=== PATIENT | male | born 1945 | race Hispanic/Latino ===

== ENCOUNTER 2018-03-30 15:55 | Observation (INO) | payer OTHER ==
[2018-03-30] MEDS ORDERED: NA CHLORIDE 0.9% 1,000 ML ONE ×2 (16:25→17:57)
[2018-03-30 16:44] LABS: Absolute Lymphocytes (CBC) 1.1 K/uL (0.7-4.9); Absolute Monocytes 0.8 K/uL (0.1-1.3); Absolute Neutrophil 8.3 K/uL (1.8-8.0); Basophils % 0.5 % (0-1.3); Hematocrit 45.5 % (39.6-49.0); Lymphocytes % 10.9 % (15.3-44.8); MCH 28.2 pg (27.0-35.0); MCV 84.8 fL (80-100); MPV 9.4 fL (7.6-11.3); Monocytes % 8.1 % (3.3-12.3); RBC Red Blood Cell Count 5.37 M/uL (4.33-5.43)
--- NOTE | 2018-03-30 16:50 | RAD REPORT ---
EXAM DESCRIPTION: Isauro Single View03/30/2018 4:42 pm CLINICAL HISTORY: Chest pain COMPARISON: 2014 FINDINGS: The lungs appear clear of acute infiltrate. The heart is normal size IMPRESSION: No acute abnormalities displayed
--- NOTE | 2018-03-30 16:50 | RAD REPORT ---
EXAM DESCRIPTION: CT - Head Brain Wo Cont - 03/30/2018 4:38 pm CLINICAL HISTORY: Dizziness COMPARISON: None. TECHNIQUE: Computed axial tomography of the head was obtained. IV contrast was not requested. All CT scans are performed using dose optimization technique as appropriate and may include automated exposure control or mA/KV adjustment according to patient size. FINDINGS: An intracranial bleed is not seen . The ventricles are normal in caliber. No extra-axial fluid collection is noted. Arterial calcifications are noted. Fluid within the sinuses/ mastoids is not seen. IMPRESSION: No acute intracranial abnormality is seen. If patient's symptoms persist MRI of the bra in would be recommended.
[2018-03-30 16:52] LABS: Protime INR 1.02
[2018-03-30 17:00] LABS: Urine Blood NEGATIVE (NEG); Urine Glucose NEGATIVE (NEG); Urine Protein NEGATIVE (NEG); Urine Specific Gravity 1.015 (1.005-1.030)
[2018-03-30 17:11] LABS: ALT/SGPT 31 U/L (12-78); AST/SGOT 29 U/L (15-37); Albumin 4.2 g/dL (3.4-5.0); Alkaline Phosphatase 81 U/L (45-117); BUN Blood Urea Nitrogen 23 mg/dL (7-18); Bicarbonate 27 mmol/L (21-32); Bilirubin Direct < 0.1 mg/dL (0-0.2); Bilirubin Total 0.3 mg/dL (0.2-1.0); CKMB Creatine Kinase MB 5.6 ng/mL (0.3-3.6); Creatine Phosphokinase 733 U/L (39-308); Glucose Level 74 mg/dL (74-106); Magnesium 2.4 mg/dL (1.8-2.4); NT PRO-BNP 92 pg/mL (<125); Potassium 4.5 mmol/L (3.5-5.1); Protein, Total 7.8 g/dL (6.4-8.2); Sodium Level 141 mmol/L (136-145)
[2018-03-30] MEDS ORDERED: ASPIRIN 81 MG CHEWABLE TABLET ONE (17:36)
[2018-03-30] MEDS ORDERED: ENOXAPARIN 80 MG/0.8 ML SQ ONE (17:37)
[2018-03-30] MEDS ORDERED: METOPROLOL TAR 25 MG TAB ONE (17:37)
--- NOTE | 2018-03-30 17:40 | ER ---
Nurse's Notes [facility] Name: Theresa Perry Age: 73 yrs Sex: Male : 1945 Arrival Date: 03/30/2018 Time: 15:58 Bed 5 Private MD: Raffaele Sepulveda Diagnosis: Acute kidney injury Presentation: 03/30 16:11 Presenting complaint: Child states: they were outside cleaning at her brother's iw gravesite, her father got over heated and then got really dizzy after standing up, was dizzy for approx 5-10 minutes, symptoms have resolved now. Transition of care: patient was not received from another setting of care. Onset of symptoms was March 30, 2018. Risk Assessment: Do you want to hurt yourself or someone else? Patient reports no desire to harm self or others. Initial Sepsis Screen: Does the patient meet any 2 criteria? No. Patient's initial sepsis screen is negative. Does the patient have a suspected source of infection? No. Patient's initial sepsis screen is negative. Care prior to arrival: None. 16:11 Method Of Arrival: Ambulatory iw 16:11 Acuity: ALLAN 3 iw Historical: - Allergies: 16:17 No Known Allergies; iw - Home Meds: 20:03 aspirin 81 mg Oral chew 1 tab once daily [Active]; lisinopril 20 mg Oral tab 1 tab once lp1 daily [Active]; simvastatin 20 mg Oral tab 1 tab once daily [Active]; - PMHx: 16:15 High Cholesterol; Hypertension; KIDNEY ISSUES AND BORDERLINE DIABETES; iw - PSHx: 16:15 Cholecystectomy; iw - Immunization history:: Adult Immunizations up to date. - Ebola Screening: : Patient negative for fever greater than or equal to 101.5 degrees Fahrenheit, and additional compatible Ebola Virus Disease symptoms Patient denies exposure to infectious person Patient denies travel to an Ebola-affected area in the 21 days before illness onset No symptoms or risks identified at this time. - Social history:: Smoking status: Patient/guardian denies using tobacco. Screenin:30 Patient has been NPO before screening. The patient is alert, able to follow commands. jl7 The patient does not exhibit slurred or garbled speech The patient is not exhibiting difficulty speaking. The patient does not exhibit difficulty understanding words. The patient is able to swallow own secretions with no drooling or need for suction. Patient tolerated one teaspoon of water. No drooling, immediate coughing, gurgling, or clearing of the throat was noted. The patient tolerated 90mL of water. No drooling, immediate coughing, gurgling, or clearing of the throat was noted. The patient passed the bedside swallow screening. Oral medications may be given as ordered. Contact Physician for further diet orders. Provider notified of bedside swallow screening results: Alex Fernandez COMBINE DRIVER. 16:37 Abuse screen: Denies threats or abuse. Denies injuries from another. Nutritional jl7 screening: No deficits noted. Tuberculosis screening: No symptoms or risk factors identified. Fall Risk IV access (20 points). Total Garcia Fall Scale indicates No Risk (0-24 pts). Assessment: 16:30 General: Appears in no apparent distress. uncomfortable, Behavior is calm, cooperative, jl7 appropriate for age. Pain: Denies pain. Neuro: Level of Consciousness is awake, alert, obeys commands, Oriented to person, place, time, situation, Moves all extremities. Gait is steady, Speech is normal, Facial symmetry appears normal. Cardiovascular: Patient's skin is warm and dry. Respiratory: Airway is patent Respiratory effort is even, unlabored, Respiratory pattern is regular, symmetrical. GI: No signs and/or symptoms were reported involving the gastrointestinal system. : No signs and/or symptoms were reported regarding the genitourinary system. EENT: No signs and/or symptoms were reported regarding the EENT system. Derm: Skin is pink, warm \T\ dry. Musculoskeletal: No signs and/or symptoms reported regarding the musculoskeletal system. 17:26 Reassessment: Patient appears in no apparent distress at this time. No changes from jl7 previously documented assessment. Patient and/or family updated on plan of care and expected duration. Pain level reassessed. Patient is alert, oriented x 3, equal unlabored respirations, skin warm/dry/pink. 18:02 Reassessment: Dr. Sepulveda at bedside discussing plan of care. jl7 18:42 Reassessment: No changes from previously documented assessment. Patient and/or family jl7 updated on plan of care and expected duration. Pain level reassessed. Patient is alert, oriented x 3, equal unlabored respirations, skin warm/dry/pink. 19:15 Reassessment: Patient is alert, oriented x 3, equal unlabored respirations, skin lp1 warm/dry/pink. Patient aware of admission Patient denies pain at this time. Patient states feeling better. Vital Signs: 16:15 BP 128 / 85; Pulse 88; Resp 16 S; Temp 97.8(TE); Pulse Ox 99% on R/A; Pain 0/10; iw 16:46 BP 114 / 83 Supine; Pulse 82; Resp 16 S; Pulse Ox 100% on R/A; jl7 16:48 BP 131 / 78 Sitting; Pulse 86; Resp 16 S; Pulse Ox 100% on R/A; jl7 16:50 BP 119 / 73 Standing; Pulse 88; Resp 16 S; Pulse Ox 100% on R/A; jl7 17:25 BP 121 / 78; Pulse 78; Resp 16 S; Pulse Ox 100% on R/A; Weight 81.65 kg; Height 5 ft. 7 jl7 in. (170.18 cm); Pain 0/10; 18:42 BP 138 / 89; Pulse 77; Resp 16; Pulse Ox 97% ; jl7 19:15 BP 126 / 81; Pulse 69; Resp 20; Pulse Ox 98% on R/A; Pain 0/10; lp1 20:00 BP 135 / 81; Pulse 69; Resp 19; Pulse Ox 97% on R/A; lp1 17:25 Body Mass Index 28.19 (81.65 kg, 170.18 cm) jl7 ED Course: 15:58 Patient arrived in ED. mr 15:59 Raffaele Sepulveda MD is Private Physician. mr 16:06 [facility] pm1 16:06 Farooq Zhang MD is Attending Physician. pm1 16:07 Eloisa Newby RN is Primary Nurse. jl7 16:14 Triage completed. iw 16:15 Arm band placed on. iw 16:29 EKG done, by anesthesia tech. reviewed by Alex Fernandez NP. sm3 16:30 Initial lab(s) drawn, by nh, sent to lab. Urine collected: clean catch specimen, clear. jl7 Inserted saline lock: 20 gauge in right antecubital area, using aseptic technique. Blood collected. 16:[address] via wheelchair. kc3 16:37 CT completed. Patient tolerated procedure well. Patient moved to radiology. kc3 16:37 Patient has correct armband on for positive identification. Placed in gown. Bed in low jl7 position. Call light in reach. Side rails up X 1. laboratory monitor on. Pulse ox on. NIBP on. 16:38 CT Head Brain wo Cont In Process Unspecified. EDMS 16:43 XRAY Chest (1 view) In Process Unspecified. EDMS 17:38 Raffaele Sepulveda MD is Hospitalizing Provider. pm1 19:07 Report given to TEENA Rhodes. jl7 20:02 No provider procedures requiring assistance completed. Patient admitted, IV remains in lp1 place. Administered Medications: 16:30 Drug: NS 0.9% 1000 ml Route: IV; Rate: 1000 ml; Site: right antecubital; jl7 17:38 Follow up: IV Status: Completed infusion jl7 17:37 Drug: Aspirin Chewable Tablet 324 mg Route: PO; jl7 18:02 Follow up: Response: No adverse reaction jl7 17:37 Not Given (Physician Discretion): Lovenox 1 mg/kg Sub-Q once pm1 17:37 Not Given (Physician Discretion): Lopressor 25 mg PO once pm1 17:45 Drug: NS 0.9% 1000 ml Route: IV; Rate: 75 ml/hr; Site: right antecubital; jl7 20:23 Follow up: IV Status: Infusion continued upon admission lp1 Outcome: 17:39 Decision to Hospitalize by Provider. pm1 20:03 Condition: stable lp1 20:03 Instructed on the need for admit. 20:22 Admitted to Med/surg room 231, with chart, Report called to Kimberlee Fallon RN lp1 20:47 Patient left the ED. lp1 Signatures: Dispatcher [employer] EDND Hannah Leonard Irene, RN RN iw Meagan Johnston RN RN lp1 Alex Fernandez, MIKA COMBINE DRIVER pm1 Eloisa Newby RN RN jl7 Tessa Hill kc3 Kenna Evangelista 3 Corrections: (The following items were deleted from the chart) 16:17 16:15 BP 128 / 85; Pulse 88bpm; Resp 16bpm; Spontaneous; Pulse Ox 99% RA; iw iw
--- NOTE | 2018-03-30 17:40 | EDPHYS ---
Physician Documentation [facility] Name: Theresa Perry Age: 73 yrs Sex: Male : 1945 Arrival Date: 03/30/2018 Time: 15:58 Bed 5 Private MD: Raffaele Sepulveda ED Physician Farooq Zhang HPI: 03/30 16:22 This 73 yrs old Male presents to ER via Ambulatory with complaints of pm1 Dizziness. 16:22 The patient presents with lightheadedness. Onset: The symptoms/episode began/occurred pm1 this morning. Context: occurred outdoors, occurred while the patient was changing position from bent over to standing. Patient was working on the lawn. just prior to the episode the patient experienced no apparent symptoms, No chest pain, shortness of breath, nausea, or vomiting. Modifying factors: The symptoms are alleviated by sitting down, and eating and drinking lunch afterwards. Associated signs and symptoms: Pertinent negatives: abdominal pain, blurred vision, chest pain, diaphoresis, focal weakness, headache, nausea, numbness, shortness of breath, tingling, vomiting. Severity of symptoms: in the emergency department the symptoms have resolved Pain is currently a 0 / 10. Patient's baseline: Neuro: alert and fully oriented, Motor: no deficits, Ambulation: walks without assistance, Speech: normal. The patient has not experienced similar symptoms in the past. The patient has not recently seen a physician, the patient's primary care provider is Dr. Sepulveda. Patient went out with his daughter to work on some land. Patient was working on the lawn. they believe that he got overheated and dehydrated. Patient bent down to vegetable picker and object and when he stood back up he felt dizzy. Patient reports improvement after sitting down and drinking Dr Pepper and Tea at lunch. Patient without any current symptoms. No headache, chest pain, or shortness of breath. Historical: - Allergies: 16:17 No Known Allergies; iw - Home Meds: 20:03 aspirin 81 mg Oral chew 1 tab once daily [Active]; lisinopril 20 mg Oral tab 1 tab once lp1 daily [Active]; simvastatin 20 mg Oral tab 1 tab once daily [Active]; - PMHx: 16:15 High Cholesterol; Hypertension; KIDNEY ISSUES AND BORDERLINE DIABETES; iw - PSHx: 16:15 Cholecystectomy; iw - Immunization history:: Adult Immunizations up to date. - Ebola Screening: : Patient negative for fever greater than or equal to 101.5 degrees Fahrenheit, and additional compatible Ebola Virus Disease symptoms Patient denies exposure to infectious person Patient denies travel to an Ebola-affected area in the 21 days before illness onset No symptoms or risks identified at this time. - Social history:: Smoking status: Patient/guardian denies using tobacco. ROS: 16:22 Constitutional: Negative for fever, chills, and weight loss, Eyes: Negative for injury, pm1 pain, redness, and discharge, ENT: Negative for injury, pain, and discharge, Neck: Negative for injury, pain, and swelling, Cardiovascular: Negative for chest pain, palpitations, and edema, Respiratory: Negative for shortness of breath, cough, wheezing, and pleuritic chest pain, Abdomen/GI: Negative for abdominal pain, nausea, vomiting, diarrhea, and constipation, Back: Negative for injury and pain, : Negative for injury, bleeding, discharge, and swelling, MS/Extremity: Negative for injury and deformity, Skin: Negative for injury, rash, and discoloration. 16:22 Neuro: Positive for dizziness, Negative for altered mental status, headache, numbness, seizure activity, syncope, tingling, weakness. Exam: 16:22 Constitutional: This is a well developed, well nourished patient who is awake, alert, pm1 and in no acute distress. Head/Face: Normocephalic, atraumatic. Eyes: Pupils equal round and reactive to light, extra-ocular motions intact. Lids and lashes normal. Conjunctiva and sclera are non-icteric and not injected. Cornea within normal limits. Periorbital areas with no swelling, redness, or edema. ENT: Nares patent. No nasal discharge, no septal abnormalities noted. Tympanic membranes are normal and external auditory canals are clear. Oropharynx with no redness, swelling, or masses, exudates, or evidence of obstruction, uvula midline. Mucous membranes moist. Neck: Trachea midline, no thyromegaly or masses palpated, and no cervical lymphadenopathy. Supple, full range of motion without nuchal rigidity, or vertebral point tenderness. No Meningismus. Chest/axilla: Normal chest wall appearance and motion. Nontender with no deformity. No lesions are appreciated. Cardiovascular: Regular rate and rhythm with a normal S1 and S2. No gallops, murmurs, or rubs. Normal PMI, no JVD. No pulse deficits. Respiratory: Lungs have equal breath sounds bilaterally, clear to auscultation and percussion. No rales, rhonchi or wheezes noted. No increased work of breathing, no retractions or nasal flaring. Abdomen/GI: Soft, non-tender, with normal bowel sounds. No distension or tympany. No guarding or rebound. No evidence of tenderness throughout. Back: No spinal tenderness. No costovertebral tenderness. Full range of motion. Skin: Warm, dry with normal turgor. Normal color with no rashes, no lesions, and no evidence of cellulitis. MS/ Extremity: Pulses equal, no cyanosis. Neurovascular intact. Full, normal range of motion. 16:22 Neuro: Orientation: is normal, Cranial nerves: CN II- XII are normal as tested, Cerebellar function: normal finger to nose testing, Motor: is normal, moves all fours, Sensation: is normal, no obvious gross deficits, Gait: is steady, at a normal pace, without difficulty. Vital Signs: 16:15 BP 128 / 85; Pulse 88; Resp 16 S; Temp 97.8(TE); Pulse Ox 99% on R/A; Pain 0/10; iw 16:46 BP 114 / 83 Supine; Pulse 82; Resp 16 S; Pulse Ox 100% on R/A; jl7 16:48 BP 131 / 78 Sitting; Pulse 86; Resp 16 S; Pulse Ox 100% on R/A; jl7 16:50 BP 119 / 73 Standing; Pulse 88; Resp 16 S; Pulse Ox 100% on R/A; jl7 17:25 BP 121 / 78; Pulse 78; Resp 16 S; Pulse Ox 100% on R/A; Weight 81.65 kg; Height 5 ft. 7 jl7 in. (170.18 cm); Pain 0/10; 18:42 BP 138 / 89; Pulse 77; Resp 16; Pulse Ox 97% ; jl7 19:15 BP 126 / 81; Pulse 69; Resp 20; Pulse Ox 98% on R/A; Pain 0/10; lp1 20:00 BP 135 / 81; Pulse 69; Resp 19; Pulse Ox 97% on R/A; lp1 17:25 Body Mass Index 28.19 (81.65 kg, 170.18 cm) jl7 MDM: 16:08 Patient medically screened. pm1 16:29 Data reviewed: vital signs. Data interpreted: Pulse oximetry: on room air is 99 %. pm1 Interpretation: normal. 16:29 Differential diagnosis: CVA, generalized weakness, hypovolemia, idiopathic dizziness, pm1 near-syncope, syncope, TIA, vertigo, Dehydration, heat exposure. 17:35 Physician consultation: Raffaele Sepulveda MD was called at 17:35, was contacted at 17:35, pm1 regarding admission, patient's condition, and will see patient later today, Does not want lopressor or lovenox given. Admit the patient for Acute Kidney Injury. Give patient NS 75 mL/hr continuous. 17:53 Physician consultation: Raffaele Sepulveda MD in the emergency department to see patient at pm1 17:53. 18:08 Physician consultation: Raffaele Sepulveda MD CPK in AM. Increase fluids to 100 mL/hr from 75 pm1 mL/hr. 03/30 16:14 Order name: Basic Metabolic Panel; Complete Time: 17:13 pm1 03/30 16:14 Order name: CBC with Diff; Complete Time: 17:04 pm1 03/30 16:14 Order name: Ckmb; Complete Time: 17:13 pm1 03/30 16:14 Order name: CPK; Complete Time: 17:13 pm1 03/30 16:14 Order name: LFT's; Complete Time: 17:13 pm1 03/30 16:14 Order name: Magnesium; Complete Time: 17:13 pm1 03/30 16:14 Order name: NT PRO-BNP; Complete Time: 17:13 pm1 03/30 16:14 Order name: PT-INR; Complete Time: 17:04 pm1 03/30 16:14 Order name: Ptt, Activated; Complete Time: 17:04 pm1 03/30 16:14 Order name: Troponin (emerg Dept Use Only); Complete Time: 17:04 pm1 03/30 16:14 Order name: XRAY Chest (1 view); Complete Time: 17:04 pm1 03/30 16:14 Order name: CT Head Brain wo Cont; Complete Time: 17:04 pm1 03/30 16:58 Order name: Urine Dipstick--Ancillary (enter results); Complete Time: 17:04 ag 03/30 16:14 Order name: EKG; Complete Time: 16:15 pm1 03/30 16:14 Order name: Cardiac monitoring; Complete Time: 16:36 pm1 03/30 16:14 Order name: EKG - Nurse/Tech; Complete Time: 16:36 pm1 03/30 16:14 Order name: IV Saline Lock; Complete Time: 16:36 pm1 03/30 16:14 Order name: Labs collected and sent; Complete Time: 16:36 pm1 03/30 16:14 Order name: O2 Per Protocol; Complete Time: 16:36 pm1 03/30 16:14 Order name: O2 Sat Monitoring; Complete Time: 16:36 pm1 03/30 16:14 Order name: Urine Dipstick-Ancillary (obtain specimen); Complete Time: 16:36 pm1 03/30 16:14 Order name: Orthostatics; Complete Time: 16:53 pm1 Administered Medications: 16:30 Drug: NS 0.9% 1000 ml Route: IV; Rate: 1000 ml; Site: right antecubital; jl7 17:38 Follow up: IV Status: Completed infusion jl7 17:37 Drug: Aspirin Chewable Tablet 324 mg Route: PO; jl7 18:02 Follow up: Response: No adverse reaction jl7 17:37 Not Given (Physician Discretion): Lovenox 1 mg/kg Sub-Q once pm1 17:37 Not Given (Physician Discretion): Lopressor 25 mg PO once pm1 17:45 Drug: NS 0.9% 1000 ml Route: IV; Rate: 75 ml/hr; Site: right antecubital; jl7 20:23 Follow up: IV Status: Infusion continued upon admission lp1 Disposition: 03/30/18 17:39 Hospitalization ordered by Raffaele Sepulveda for Observation. Preliminary diagnosis is Acute kidney injury. - Bed requested for Telemetry/MedSurg (observation). - Status is Observation. lp1 - Condition is Stable. - Problem is new. - Symptoms have improved. UTI on Admission? No Addendum: 04/02/2018 07:20 Co-signature as Attending Physician, Farooq Zhang MD I agree with the assessment and k dr plan of care. Signatures: Dispatcher [employer] EDMS Farooq Zhang MD MD kdr Maria Esther Jimenez, RN RN iw Meagan Johnston, RN RN lp1 Alex Fernandez, CAN CLEANER CAN CLEANER pm1 Eloisa Newby RN RN jl7 Pradeep De Luna mw2 Corrections: (The following items were deleted from the chart) 03/30 20:17 17:39 Hospitalization Ordered by Raffaele Sepulveda MD for Observation. Preliminary diagnosis mw2 is Acute kidney injury. Bed requested for Telemetry/MedSurg (observation). Status is Observation. Condition is Stable. Problem is new. Symptoms have improved. UTI on Admission? No. pm1 20:47 20:17 03/30/2018 17:39 Hospitalization Ordered by Raffaele Sepulveda MD for Observation. lp1 Preliminary diagnosis is Acute kidney injury. Bed requested for Telemetry/MedSurg (observation). Status is Observation. Condition is Stable. Problem is new. Symptoms have improved. UTI on Admission? No. mw2
--- NOTE | 2018-03-30 18:21 | P.HP ---
Certification for Inpatient Patient admitted to: Observation With expected LOS: <2 Midnights Patient will require the following post-hospital care: None Practitioner: I am a practitioner with admitting privileges, knowledge of patient current condition, hospital course, and medical plan of care. Services: Services provided to patient in accordance with Admission requirements found in Title 42 Section 412.3 of the Code of Federal Regulations Patient History Date of Service: 03/30/18 Primary Care Provider: Derick Reason for admission: Acute renal failure due to rhabdomyalisis History of Present Illness: Patient is an office patient of [facility]. He has a history of htn, hyperlipidemia. He was struggling with grief due to the of his son. He went to the site of his to clean up around the cross. Spent approx 2 hours working in the sun. Had some tea. The patient started getting dizzy. As it did not resolve he came to the ER. He was found to have an elevation in his cpk and a creatine of 1.9. Unfortunately we do not have a baseline to compare to. The patient denies any chest pain or shortness of breath. Allergies No Known Drug Allergies Allergy (Unverified 03/05/15 23:27) Unknown No Known Allergies Allergy (Uncoded 09/14/17 01:45) Unknown Home medications list reviewed: Yes (lisinopril 20mg qday, simvastatin 20mg qday , asa 81mg qday) Review of Systems 10-point ROS is otherwise unremarkable General: Weakness, Malaise Physical Examination - Physical Exam General: Alert, In no apparent distress HEENT: Atraumatic, PERRLA, Mucous membr. moist/pink, EOMI, Sclerae nonicteric Neck: Supple, 2+ carotid pulse no bruit, No LAD, Without JVD or thyroid abnormality Respiratory: Clear to auscultation bilaterally, Normal air movement Cardiovascular: Regular rate/rhythm, Normal S1 S2 Gastrointestinal: Normal bowel sounds, No tenderness Musculoskeletal: No tenderness Integumentary: No rashes Neurological: Normal gait, Normal speech, Normal strength at 5/5 x4 extr, Normal tone, Normal affect Lymphatics: No axilla or inguinal lymphadenopathy - Studies Laboratory Data (last 24 hrs) 03/30/18 16:30: PT 12.0, INR 1.02, APTT 34.7 03/30/18 16:30: WBC 10.4, Hgb 15.1, Hct 45.5, Plt Count 206 03/30/18 16:30: Sodium 141, Potassium 4.5, BUN 23 H, Creatinine 1.90 H, Glucose 74, Magnesium 2.4, Total Bilirubin 0.3, AST 29, ALT 31, Alkaline Phosphatase 81 Assessment and Plan - Problems (Diagnosis) (1) Acute renal failure Current Visit: Yes Status: Acute Plan: will continue him on iv fluids. Monitor his cpk. He does not want a snyder. Will give him a bedside urinal as he will hopefully be peeing a lot. This is most likely a prerenal kidney failure. Qualifiers: Acute renal failure type: unspecified Qualified Code(s): N17.9 - Acute kidney failure, unspecified (2) Rhabdomyolysis Current Visit: Yes Status: Acute Plan: Will start with fluid hydration. Will feed him. Monitor his kidney function. Qualifiers: Rhabdomyolysis type: non-traumatic Qualified Code(s): M62.82 - Rhabdomyolysis (3) HTN (hypertension) Current Visit: Yes Status: Acute Plan: Normally takes lisinopril. He has not been in the office for nearly a year. will hold for now. If his blood pressure increases we can restart the lisinopril Qualifiers: Hypertension type: essential hypertension Qualified Code(s): I10 - Essential (primary) hypertension (4) Hyperlipidemia Current Visit: Yes Status: Acute Plan: Hold the simvastatin while he is in rhabdo. Will check a fasting lipid profile on the patient. Qualifiers: Hyperlipidemia type: pure hypercholesterolemia Qualified Code(s): E78.00 - Pure hypercholesterolemia, unspecified; E78.0 - Pure hypercholesterolemia Discharge Plan: Home Plan to discharge in: 24 Hours - Advance Directives Does patient have a Living Will: No Does patient have a Durable POA for Healthcare: No - Code Status/Comfort Care Code Status Assessed: No Code Status: Full Code Physician Review: Patient Assessed, Agree with Above Assessment and Plan Critical Care: No Time Spent Managing Pts Care (In Minutes): 40
[2018-03-30] MEDS ORDERED: NA CHLORIDE 0.9% 1,000 ML IV SCH (19:00)
--- NOTE | 2018-03-30 19:09 | EKG ---
Test Date: 2018-03-30 Test Time: 16:25:11 International Logistics Manager: ANGELA MEASUREMENT RESULTS: Intervals: Rate: 84 AL: 158 QRSD: 84 QT: 338 QTc: 399 Roberts: P: 23 AL: 158 QRS: -19 T: 9 INTERPRETIVE STATEMENTS: Normal sinus rhythm Normal ECG Compared to ECG 03/04/2015 19:29:26 Left ventricular hypertrophy no longer present Electronically Signed On 03-30-18 19:08:43 CDT by Leonides Montesinos
[2018-03-30] MEDS: NA CHLORIDE 0.9% 1,000 ML IV SCH (21:05)
[2018-03-30] MEDS ORDERED: ACETAMINOPHEN 500 MG TAB PO PRN (21:05)
[2018-03-31] MEDS: NA CHLORIDE 0.9% 1,000 ML IV SCH ×2 (02:58→07:05)
[2018-03-31 05:02] LABS: Absolute Lymphocytes (CBC) 1.4 K/uL (0.7-4.9); Absolute Monocytes 0.5 K/uL (0.1-1.3); Absolute Neutrophil 3.9 K/uL (1.8-8.0); Basophils % 0.9 % (0-1.3); Eosinophils % 4.6 % (0-4.4); Hematocrit 40.3 % (39.6-49.0); Lymphocytes % 23.2 % (15.3-44.8); MCH 28.6 pg (27.0-35.0); MCV 85.7 fL (80-100); MPV 9.2 fL (7.6-11.3); Monocytes % 8.6 % (3.3-12.3); RBC Red Blood Cell Count 4.71 M/uL (4.33-5.43)
[2018-03-31 05:26] LABS: Potassium 4.4 mmol/L (3.5-5.1)
[2018-03-31] MEDS ORDERED: PANTOPRAZOLE 40MG TABLET PO SCH (06:30)
[2018-03-31] MEDS ORDERED: PNEUMOCOCCAL VACCINE 0.5 ML IMVAC ONE (08:00)
[2018-03-31] MEDS ORDERED: ASPIRIN EC 81 MG TAB PO SCH (09:00)
--- NOTE | 2018-03-31 09:27 | P.DS ---
Admission Date: 03/30/18 Discharge Date: 03/31/18 Primary Care Provider: Derick Disposition: ROUTINE DISCHARGE Discharge Condition: GOOD Reason for Admission: Acute renal failure due to rhabdomyalisis - Problems (1) Acute renal failure Current Visit: Yes Status: Acute Qualifiers: Acute renal failure type: unspecified Qualified Code(s): N17.9 - Acute kidney failure, unspecified (2) Rhabdomyolysis Current Visit: Yes Status: Acute Qualifiers: Rhabdomyolysis type: non-traumatic Qualified Code(s): M62.82 - Rhabdomyolysis (3) HTN (hypertension) Current Visit: Yes Status: Acute Qualifiers: Hypertension type: essential hypertension Qualified Code(s): I10 - Essential (primary) hypertension (4) Hyperlipidemia Current Visit: Yes Status: Acute Qualifiers: Hyperlipidemia type: pure hypercholesterolemia Qualified Code(s): E78.00 - Pure hypercholesterolemia, unspecified; E78.0 - Pure hypercholesterolemia Brief History of Present Illness: Patient is an office patient of [employer]. He has a history of htn, hyperlipidemia. He was struggling with grief due to the of his son. He went to the site of his to clean up around the cross. Spent approx 2 hours working in the sun. Had some tea. The patient started getting dizzy. As it did not resolve he came to the ER. He was found to have an elevation in his cpk and a creatine of 1.9. Unfortunately we do not have a baseline to compare to. The patient denies any chest pain or shortness of breath. Hospital Course: Patient was admitted for iv fluids. His creatine has fallen from 1.9 to 1.3 He has improved his cpk to 500's. Will recheck his creatine in the afternoon. If ti continues to fall. The patient can safely be discharged. Will have him follow up in the office. Hold the lisinopril and the simvastatin till then. Vital Signs/Physical Exam: Temp Pulse Resp BP Pulse Ox 96.6 F L 76 18 116/58 L 96 03/31/18 08:00 03/31/18 08:00 03/31/18 08:00 03/31/18 08:00 03/31/18 08:00 General: Alert, In no apparent distress HEENT: Atraumatic, PERRLA, EOMI Neck: Supple, JVD not distended Respiratory: Clear to auscultation bilaterally, Normal air movement Cardiovascular: Regular rate/rhythm, Normal S1 S2 Gastrointestinal: Normal bowel sounds, No tenderness Musculoskeletal: No tenderness Integumentary: No rashes Neurological: Normal speech, Normal tone, Normal affect Lymphatics: No axilla or inguinal lymphadenopathy Laboratory Data at Discharge: WBC 6.2 K/uL (4.3-10.9) D 03/31/18 04:10 Hgb 13.4 g/dL (13.6-17.9) L 03/31/18 04:10 Hct 40.3 % (39.6-49.0) 03/31/18 04:10 Plt Count 147 K/uL (152-406) L D 03/31/18 04:10 PT 12.0 SECONDS (9.5-12.5) 03/30/18 16:30 INR 1.02 03/30/18 16:30 APTT 34.7 SECONDS (24.3-36.9) 03/30/18 16:30 Sodium 142 mmol/L (136-145) 03/31/18 04:10 Potassium 4.4 mmol/L (3.5-5.1) 03/31/18 04:10 BUN 20 mg/dL (7-18) H 03/31/18 04:10 Creatinine 1.30 mg/dL (0.55-1.3) 03/31/18 04:10 Glucose 94 mg/dL (74-106) 03/31/18 04:10 Magnesium 2.4 mg/dL (1.8-2.4) 03/30/18 16:30 Total Bilirubin 0.3 mg/dL (0.2-1.0) 03/30/18 16:30 AST 29 U/L (15-37) 03/30/18 16:30 ALT 31 U/L (12-78) 03/30/18 16:30 Alkaline Phosphatase 81 U/L (45-117) 03/30/18 16:30 Home Medications: Aspirin [Aspir-Low] 81 mg PO DAILY 03/30/18 Lisinopril [Prinivil*] 20 mg PO DAILY 03/30/18 Simvastatin 20 mg PO BEDTIME 03/30/18 Diet: Regular Activity: Ad haider Followup: Raffaele Sepulveda MD [Primary Care Provider] - 1-2 Weeks Physician Review: Patient Assessed, Agree with Above Assessment and Plan Time spent managing pt's care (in minutes): 30
[2018-03-31 13:24] LABS: Potassium 4.2 mmol/L (3.5-5.1)
[2018-03-31] MEDS ORDERED: ENOXAPARIN 40 MG/0.4 ML SQ SCH (17:00)
[2018-04-01] MEDS ORDERED: ASPIRIN EC 81 MG TAB PO SCH (09:00)
== END 2018-03-31 14:43 | disposition home or self-care (01) ==
LOC: ER 15:55 → ERHOLD 17:46 → 2ND 20:27
PROVIDERS: ADMIT Internal Medicine; ATTEND Internal Medicine
DX: N17.9 Acute kidney failure, unspecified (principal); M62.82 Rhabdomyolysis; I10 Essential (primary) hypertension; E78.00 Pure hypercholesterolemia, unspecified; Z79.82 Long term (current) use of aspirin; Z23 Encounter for immunization
CPT/HCPCS: 36415; 70450; 71045; 80048 ×3; 80076; 81003; 82550 ×2; 82553; 83735; 83880; 84484; 85025 ×2; 85610; 85730; 90670; 93005; 96360; 96361; 99285; G0009; G0378 ×2; J7030 ×3; J1650

== ENCOUNTER 2019-07-20 22:21 | Emergency (ER) | payer OTHER ==
--- NOTE | 2019-07-20 23:20 | ER ---
Nurse's Notes [facility] Name: Theresa Perry Age: 74 yrs Sex: Male : 1945 Arrival Date: 07/20/2019 Time: 22:24 Bed 15 Private MD: Diagnosis: Sprain of ankle Presentation: 07/20 22:26 Presenting complaint: adult child: "yesterday we were moving and he twisted his ankle jd3 and today he can barely walk on it.". Transition of care: patient was not received from another setting of care. Onset of symptoms was July 20, 2019. Risk Assessment: Do you want to hurt yourself or someone else? Patient reports no desire to harm self or others. Initial Sepsis Screen: Does the patient meet any 2 criteria? No. Patient's initial sepsis screen is negative. Does the patient have a suspected source of infection? No. Patient's initial sepsis screen is negative. Care prior to arrival: None. 22:26 Method Of Arrival: Wheelchair jd3 22:26 Acuity: ALLAN 4 jd3 Historical: - Allergies: 22:29 No Known Allergies; jd3 - Home Meds: 22:29 aspirin 81 mg Oral chew 1 tab once daily [Active]; lisinopril 20 mg Oral tab 1 tab once jd3 daily [Active]; simvastatin 20 mg Oral tab 1 tab once daily [Active]; - PMHx: 22:29 High Cholesterol; Hypertension; KIDNEY ISSUES AND BORDERLINE DIABETES; jd3 - PSHx: 22:29 Cholecystectomy; jd3 - Immunization history:: Adult Immunizations up to date. - Social history:: Smoking status: Patient/guardian denies using tobacco. - Ebola Screening: : Patient negative for fever greater than or equal to 101.5 degrees Fahrenheit, and additional compatible Ebola Virus Disease symptoms. Screenin:21 Abuse screen: Denies threats or abuse. Nutritional screening: No deficits noted. tr5 Tuberculosis screening: No symptoms or risk factors identified. Fall Risk None identified. Assessment: 23:21 General: Behavior is calm, cooperative, appropriate for age. Pain: Complains of pain in tr5 left foot. Neuro: Level of Consciousness is awake, alert, obeys commands, Oriented to person, place, time, Machine Setter are equal bilaterally. Cardiovascular: Heart tones present Capillary refill < 3 seconds Pulses are all present. Edema is absent. Respiratory: Airway is patent Respiratory effort is even, unlabored, Respiratory pattern is regular, symmetrical. GI: No signs and/or symptoms were reported involving the gastrointestinal system. : No signs and/or symptoms were reported regarding the genitourinary system. EENT: No signs and/or symptoms were reported regarding the EENT system. Derm: No signs and/or symptoms reported regarding the dermatologic system. Musculoskeletal: Reports pain in left foot. Vital Signs: 22:29 BP 139 / 84; Pulse 81; Resp 17 S; Temp 98.9(O); Pulse Ox 97% on R/A; Weight 72.57 kg j (R); Height 5 ft. 6 in. (167.64 cm) (R); Pain 10/10; 22:29 Body Mass Index 25.82 (72.57 kg, 167.64 cm) [facility] ED Course: 22:24 Patient arrived in ED. cf2 22:28 Triage completed. jd3 22:28 [facility]C [facility] kb 22:28 Milton Christensen MD is Attending Physician. kb 22:30 Arm band placed on. jd3 23:17 Marbin Robertson, RN is Primary Nurse. tr5 23:21 Bed in low position. Call light in reach. Side rails up X 1. tr5 23:35 Ankle Left 3 View XRAY In Process Unspecified. EDMS 07/21 00:14 No provider procedures requiring assistance completed. Patient did not have IV access tr5 during this emergency room visit. Administered Medications: No medications were administered Outcome: 07/20 23:18 Discharge ordered by . kb 07/21 00:12 Discharged to home via wheelchair. tr5 Condition: stable Discharge instructions given to patient, Instructed on discharge instructions, follow up and referral plans. Demonstrated understanding of instructions, follow-up care. 00:15 Patient left the ED. tr5 Signatures: Dispatcher [employer] EDVT Adina Barker FNP-C FNP-Ckb Davies, Jonathon, RN RN jd3 Marbin Robertson RN RN tr5 Hi Vasquez cf2
--- NOTE | 2019-07-20 23:21 | EDPHYS ---
Physician Documentation [facility] Name: Theresa Perry Age: 74 yrs Sex: Male : 1945 Arrival Date: 07/20/2019 Time: 22:24 Bed 15 Private MD: ED Physician Milton Christensen HPI: 07/20 23:18 This 74 yrs old Male presents to ER via Wheelchair with complaints of Ankle kb Injury. 23:18 The patient presents with pain, swelling, tenderness. The complaints affect the left kb ankle. Onset: The symptoms/episode began/occurred yesterday. Context: The problem was sustained at home, resulted from twisting ankle, The mechanism of injury is unknown. The patient can partially bear weight on the affected extremity. uses a walker. Associated signs and symptoms: Pertinent positives: swelling. Modifying factors: The symptoms are alleviated by nothing, the symptoms are aggravated by weight bearing. Severity of symptoms: At their worst the symptoms were moderate, in the emergency department the symptoms are unchanged. The patient has not experienced similar symptoms in the past. The patient has not recently seen a physician. twisted ankle while moving yesterday, walked on it ok yesterday. Pain when he woke up this morning and has been painful to walk on so he has been using a walker. Historical: - Allergies: 22:29 No Known Allergies; jd3 - Home Meds: 22:29 aspirin 81 mg Oral chew 1 tab once daily [Active]; lisinopril 20 mg Oral tab 1 tab once jd3 daily [Active]; simvastatin 20 mg Oral tab 1 tab once daily [Active]; - PMHx: 22:29 High Cholesterol; Hypertension; KIDNEY ISSUES AND BORDERLINE DIABETES; jd3 - PSHx: 22:29 Cholecystectomy; jd3 - Immunization history:: Adult Immunizations up to date. - Social history:: Smoking status: Patient/guardian denies using tobacco. - Ebola Screening: : Patient negative for fever greater than or equal to 101.5 degrees Fahrenheit, and additional compatible Ebola Virus Disease symptoms. ROS: 22:40 Constitutional: Negative for fever, chills, and weight loss, Neck: Negative for injury, kb pain, and swelling, Cardiovascular: Negative for chest pain, palpitations, and edema, Respiratory: Negative for shortness of breath, cough, wheezing, and pleuritic chest pain, Abdomen/GI: Negative for abdominal pain, nausea, vomiting, diarrhea, and constipation, Back: Negative for injury and pain, Skin: Negative for injury, rash, and discoloration, Neuro: Negative for headache, weakness, numbness, tingling, and seizure. 22:40 MS/extremity: Positive for injury or acute deformity, decreased range of motion, pain, swelling, tenderness. Exam: 22:45 Constitutional: This is a well developed, well nourished patient who is awake, alert, kb and in no acute distress. Head/Face: Normocephalic, atraumatic. ENT: Nares patent. No nasal discharge, no septal abnormalities noted. Tympanic membranes are normal and external auditory canals are clear. Oropharynx with no redness, swelling, or masses, exudates, or evidence of obstruction, uvula midline. Mucous membranes moist. Neck: Trachea midline, no thyromegaly or masses palpated, and no cervical lymphadenopathy. Supple, full range of motion without nuchal rigidity, or vertebral point tenderness. No Meningismus. Chest/axilla: Normal chest wall appearance and motion. Nontender with no deformity. No lesions are appreciated. Cardiovascular: Regular rate and rhythm with a normal S1 and S2. No gallops, murmurs, or rubs. Normal PMI, no JVD. No pulse deficits. Respiratory: Lungs have equal breath sounds bilaterally, clear to auscultation and percussion. No rales, rhonchi or wheezes noted. No increased work of breathing, no retractions or nasal flaring. Abdomen/GI: Soft, non-tender, with normal bowel sounds. No distension or tympany. No guarding or rebound. No evidence of tenderness throughout. Skin: Warm, dry with normal turgor. Normal color with no rashes, no lesions, and no evidence of cellulitis. Neuro: Awake and alert, GCS 15, oriented to person, place, time, and situation. Cranial nerves II-XII grossly intact. Motor strength 5/5 in all extremities. Sensory grossly intact. Cerebellar exam normal. Normal gait. 22:45 Musculoskeletal/extremity: Extremities: grossly normal except: noted in the anterior aspect of left ankle: decreased ROM, pain, swelling, tenderness, ROM: limited active range of motion due to pain, in the anterior aspect of left ankle, Circulation is intact in all extremities. Sensation intact. Weight bearing: can bear weight with assistance only, uses walker. Vital Signs: 22:29 BP 139 / 84; Pulse 81; Resp 17 S; Temp 98.9(O); Pulse Ox 97% on R/A; Weight 72.57 kg jd3 (R); Height 5 ft. 6 in. (167.64 cm) (R); Pain 10/10; 22:29 Body Mass Index 25.82 (72.57 kg, 167.64 cm) jd3 MDM: 22:32 Patient medically screened. kb 22:39 Data reviewed: vital signs, nurses notes. Data interpreted: Pulse oximetry: on room air kb is 97 %. Interpretation: normal. Counseling: I had a detailed discussion with the patient and/or guardian regarding: the historical points, exam findings, and any diagnostic results supporting the discharge/admit diagnosis, radiology results, the need for outpatient follow up, a orthopedic surgeon, to return to the emergency department if symptoms worsen or persist or if there are any questions or concerns that arise at home. 07/20 22:36 Order name: Ankle Left 3 View XRAY kb 07/20 23:18 Order name: Aircast Ankle Splint; Complete Time: 00:11 kb Administered Medications: No medications were administered Disposition: 07/20/19 23:18 Discharged to Home. Impression: Sprain of ankle. - Condition is Stable. - Discharge Instructions: Ankle Sprain, [id number]. - Work release form, Family Work Release, Medication Reconciliation Form, Thank You Letter, Antibiotic Education, Prescription Opioid Use form. - Follow up: Emergency Department; When: As needed; Reason: Worsening of condition. Follow up: Private Physician; When: 2 - 3 days; Reason: Recheck today's complaints, Continuance of care, Re-evaluation by your physician. Addendum: 07/22/2019 06:59 Co-signature as Attending Physician, Milton Christensen MD I agree with the assessment and c alex plan of care. Signatures: Dispatcher [employer] Adina Quintero, TRAINING SYSTEMS OFFICER-C TRAINING SYSTEMS OFFICER-CkMilton Perkins MD MD cha Davies, Jonathon, RN RN jd3 Marbin Robertson RN RN tr5 Corrections: (The following items were deleted from the chart) 07/20 22:45 22:40 MS/extremity: Positive for kb kb 11/24 00:15 07/20 23:18 07/20/2019 23:18 Discharged to Home. Impression: Sprain of ankle. Condition tr5 is Stable. Forms are Medication Reconciliation Form, Thank You Letter, Antibiotic Education, Prescription Opioid Use. Follow up: Emergency Department; When: As needed; Reason: Worsening of condition. Follow up: Private Physician; When: 2 - 3 days; Reason: Recheck today's complaints, Continuance of care, Re-evaluation by your physician. kb
[2019-07-21 00:32] VITALS: BP 139/84; TEMP 98.9; O2SAT 97
--- NOTE | 2019-07-21 08:44 | RAD REPORT ---
EXAM DESCRIPTION: RAD - Ankle Left 3 View - 07/20/2019 11:35 pm CLINICAL HISTORY: Ankle pain, twisting injury COMPARISON: Right ankle August 2017 FINDINGS: No fracture, dislocation or periosteal reaction. No joint effusion seen. No joint space na rrowing. Mild lateral soft tissue swelling is present. Patient has a moderately large plantar spur. A similar size spurs seen in the contralateral right calcaneus. Calcifications are present within or a djacent to the plantar tendon the calcaneus origin. Patient has a similar calcification pattern on th e right. IMPRESSION: Soft tissue swelling with no fracture. Plantar spur and tendon or peritendinous calcification pattern is similar to the contralateral right ankle.
== END 2019-07-21 00:15 | disposition home or self-care (01) ==
LOC: ER 22:21
DX: S93.402A Sprain of unspecified ligament of left ankle, initial encounter (principal); X50.1XXA Overexertion from prolonged static or awkward postures, initial encounter; Y93.9 Activity, unspecified; Y92.9 Unspecified place or not applicable; I10 Essential (primary) hypertension; E78.00 Pure hypercholesterolemia, unspecified; E11.9 Type 2 diabetes mellitus without complications; Z79.82 Long term (current) use of aspirin
CPT/HCPCS: 99283

== ENCOUNTER 2020-06-07 14:20 | Emergency (ER) | payer OTHER ==
--- OUTSIDE RECORDS SUMMARY | 2020-06-07 14:22 | XMS REPORT | Continuity of Care Document ---
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 [facility] Hyperlipid Hyperlipid Problem Active [facility] Hypertensi Hypertensi Problem Active C [facility] Acute left Acute left Diagnosis Active [facility] ankle pain ankle pain Mikayla kes - [facility] Diverticul Diverticul Problem Active C [facility] ar disease ar disease Mikayla kes - [facility] Adjustment Adjustment Problem Active [facility] disorder disorder [facility] - with with [facility] depressed depressed l mood mood [facility] Allergies, Adverse Reactions, Alerts This patient has no known allergies or adverse reactions. Medications Ordered Filled Start Stop Current Ordering Indication Dosage Frequency Signature Comments Components Source Medication Medication Date Date Medication? Clinician (SIG) Name Name Acetaminoph Acetaminoph Yes Kam (Schedule [facility] en-Codeine en-Codeine Gonzalez III Drug) Lacey - #3 #3 TK 2 TS PO [facility] Q 6 H PRN l P [facility] Simvastatin Simvastatin Yes Kam [address] [facility] Gonzalez ORALLY [facility] - ONCE DAILY [facility] IN EVENING l [facility] Diclofenac Diclofenac Yes Kam [address] [facility] Sodium Sodium Gonzalez with food [facility] - or milk [facility] l [facility] Lisinopril Lisinopril Yes Kam [address] [facility] Gonzalez ORALLY [facility] - ONCE DAILY [facility] Aspirin EC Aspirin EC Yes Kam TK [address] [facility] [address] Low Dose Low Dose Gonzalez ONCE D [facility] Lisinopril Lisinopril Yes Kam TAKE [address] [facility] Gonzalez TABLET BY [facility] - MOUTH [facility] EVERY DAY [facility] Meloxicam Meloxicam Yes Kam not [facility] Procedures This patient has no known procedures. Encounters Start End Encounter Admission Attending Care Care Encounter Source Date/Time Date/Time Type Type Clinicians Facility Department ID 2019-09-23 2019-09-23 [facility] [id number] [facility] [address] 08:30:00 08:30:00 t [facility] Results This patient has no known results.
--- NOTE | 2020-06-07 14:52 | EDPHYS ---
Physician Documentation [facility] Name: Theresa Perry Age: 75 yrs Sex: Male : 1945 Arrival Date: 06/07/2020 Time: 14:22 Bed 5 Private MD: ED Physician Andres Woods HPI: 06/07 14:48 This 75 yrs old Male presents to ER via Ambulatory with complaints of Nose ps1 Bleed. 14:48 Patient had left anterior nosebleed. Resolved STAFF EDUCATOR. Taking high dose aspirin for ps1 headaches. Onset was 3 days ago and intermittent. Additionally has HTN. Out of meds. Was taking lisinopril. Has not had fu with PCP. . Historical: - Allergies: 14:35 No Known Allergies; ll1 - PMHx: 14:35 High Cholesterol; Hypertension; KIDNEY ISSUES AND BORDERLINE DIABETES; ll1 - PSHx: 14:35 Cholecystectomy; Tonsillectomy; ll1 - Immunization history:: Flu vaccine is not up to date. - Social history:: Smoking status: Patient denies any tobacco usage or history of. ROS: 14:48 Constitutional: Negative for fever, chills, and weight loss, Eyes: Negative for injury, ps1 pain, redness, and discharge, Cardiovascular: Negative for chest pain, palpitations, and edema, Respiratory: Negative for shortness of breath, cough, wheezing, and pleuritic chest pain, Abdomen/GI: Negative for abdominal pain, nausea, vomiting, diarrhea, and constipation, MS/Extremity: Negative for injury and deformity, Skin: Negative for injury, rash, and discoloration. 14:48 Neuro: Positive for headache, not today. Exam: 14:48 Constitutional: This is a well developed, well nourished patient who is awake, alert, ps1 and in no acute distress. Head/Face: Normocephalic, atraumatic. Eyes: Pupils equal round and reactive to light, extra-ocular motions intact. Lids and lashes normal. Conjunctiva and sclera are non-icteric and not injected. Cardiovascular: Regular rate and rhythm. No gallops, murmurs, or rubs. Normal PMI, no JVD. No pulse deficits. Respiratory: Lungs have equal breath sounds bilaterally, clear to auscultation and percussion. No rales, rhonchi or wheezes noted. No increased work of breathing, no retractions or nasal flaring. Abdomen/GI: Soft, non-tender, with normal bowel sounds. No distension or tympany. No guarding or rebound. No evidence of tenderness throughout. Skin: Warm, dry with normal turgor. Normal color with no rashes, no lesions, and no evidence of cellulitis. Neuro: Awake and alert, GCS 15, oriented to person, place, time, and situation. Cranial nerves II-XII grossly intact. Sensory grossly intact. 14:48 ENT: External ear(s): are unremarkable, Nose: bleeding, is seen from the left nare, and is minimal, dried blood and clots. Vital Signs: 14:33 BP 160 / 99; Pulse 79; Resp 18; Temp 98.4; Pulse Ox 98% ; Pain 0/10; ll1 15:02 BP 146 / 95; Pulse 76; Resp 16; Temp 98.0; Pulse Ox 99% on R/A; ph MDM: 14:48 Differential diagnosis: spontaneous epistaxis, medication effect of aspirin. Data ps1 reviewed: vital signs, nurses notes, and as a result, I will discharge patient. Counseling: I had a detailed discussion with the patient and/or guardian regarding: the historical points, exam findings, and any diagnostic results supporting the discharge/admit diagnosis, the need for outpatient follow up, to return to the emergency department if symptoms worsen or persist or if there are any questions or concerns that arise at home. 14:52 Patient medically screened. ps1 Administered Medications: No medications were administered Disposition: 06/07/20 14:52 Discharged to Home. Impression: Epistaxis, Hypertension secondary to endocrine disorders. - Condition is Stable. - Discharge Instructions: Nosebleed, Adult, Hypertension. - Prescriptions for Lisinopril 10 mg Oral Tablet - take 1 tablet by ORAL route once daily; 30 tablet. - Family Work Release, Medication Reconciliation Form, Thank You Letter, Antibiotic Education, Prescription Opioid Use form. - Follow up: Private Physician; When: 1 week; Reason: Recheck today's complaints, Continuance of care. Follow up: Emergency Department; When: As needed; Reason: If symptoms return, Worsening of condition. - Problem is new. - Symptoms are resolved. Signatures: Mary Echevarria RN RN ph Andres Woods MD MD ps1 Deepak, Lynsay, RN RN ll1 Corrections: (The following items were deleted from the chart) 15:03 14:52 06/07/2020 14:52 Discharged to Home. Impression: Epistaxis; Hypertension ph secondary to endocrine disorders. Condition is Stable. Forms are Medication Reconciliation Form, Thank You Letter, Antibiotic Education, Prescription Opioid Use. Follow up: Private Physician; When: 1 week; Reason: Recheck today's complaints, Continuance of care. Follow up: Emergency Department; When: As needed; Reason: If symptoms return, Worsening of condition. Problem is new. Symptoms are resolved. ps1
--- NOTE | 2020-06-07 14:52 | ER ---
Nurse's Notes [facility] Name: Theresa Perry Age: 75 yrs Sex: Male : 1945 Arrival Date: 06/07/2020 Time: 14:22 Bed 5 Private MD: Diagnosis: Epistaxis;Hypertension secondary to endocrine disorders Presentation: 06/07 14:33 Chief complaint: Patient states: Nasal bleeding off/on for 3 days. Started bleeding ll1 heavier today with blood clots in it. No trauma or pain. Coronavirus screen: Client denies travel out of the [place] in the last 14 days. congestion, Client presents with at least one sign or symptom that may indicate coronavirus-19. Standard/surgical mask placed on the client. Ebola Screen: Patient denies travel to an Ebola-affected area in the 21 days before illness onset. Initial Sepsis Screen: Does the patient meet any 2 criteria? No. Patient's initial sepsis screen is negative. Does the patient have a suspected source of infection? Yes: Other: nose. Risk Assessment: Do you want to hurt yourself or someone else? Patient reports no desire to harm self or others. Onset of symptoms was June 05, 2020. 14:33 Method Of Arrival: Ambulatory ll1 14:33 Acuity: ALLAN 3 ll1 Historical: - Allergies: 14:35 No Known Allergies; ll1 - PMHx: 14:35 High Cholesterol; Hypertension; KIDNEY ISSUES AND BORDERLINE DIABETES; ll1 - PSHx: 14:35 Cholecystectomy; Tonsillectomy; ll1 - Immunization history:: Flu vaccine is not up to date. - Social history:: Smoking status: Patient denies any tobacco usage or history of. Screenin:59 Abuse screen: Denies threats or abuse. Denies injuries from another. Nutritional hb screening: No deficits noted. Tuberculosis screening: No symptoms or risk factors identified. Fall Risk None identified. Assessment: 15:01 General: Appears in no apparent distress. comfortable, Behavior is calm, cooperative, ph appropriate for age. Pain: Denies pain. Neuro: Level of Consciousness is awake, alert, obeys commands, Oriented to person, place, time, situation, Denies weakness dizziness. Cardiovascular: Capillary refill < 3 seconds in bilateral fingers Patient's skin is warm and dry. Respiratory: Airway is patent Respiratory effort is even, unlabored. Derm: Skin is intact, is healthy with good turgor, Skin is pink, warm \T\ dry. Musculoskeletal: Circulation, motion, and sensation intact. Range of motion: intact in all extremities. Vital Signs: 14:33 BP 160 / 99; Pulse 79; Resp 18; Temp 98.4; Pulse Ox 98% ; Pain 0/10; ll1 15:02 BP 146 / 95; Pulse 76; Resp 16; Temp 98.0; Pulse Ox 99% on R/A; ph ED Course: 14:22 Patient arrived in ED. ds1 14:33 Andres Woods MD is Attending Physician. ps1 14:35 Triage completed. ll1 14:35 Arm band placed on Patient placed in an exam room, on a stretcher. ll1 14:38 Mary Echevarria RN is Primary Nurse. ph 15:00 Patient has correct armband on for positive identification. Bed in low position. Call ph light in reach. Pulse ox on. NIBP on. 15:02 No provider procedures requiring assistance completed. Patient did not have IV access ph during this emergency room visit. Administered Medications: No medications were administered Outcome: 14:52 Discharge ordered by . ps1 15:02 Discharged to home with family. ph 15:02 Condition: good 15:02 Discharge instructions given to patient, Instructed on discharge instructions, follow up and referral plans. medication usage, Demonstrated understanding of instructions, follow-up care, medications, Prescriptions given X 1. 15:03 Patient left the ED. ph Signatures: Hanna Bailey ds1 Mary Echevarria RN RN Mikaela Harper RN RN Andres Woods MD MD ps1 Teresa Sotelo RN RN ll1
[2020-06-07 15:14] VITALS: BP 146/95; TEMP 98; O2SAT 99
== END 2020-06-07 15:03 | disposition home or self-care (01) ==
LOC: ER 14:20
DX: I15.2 Hypertension secondary to endocrine disorders (principal); R51.9 Headache, unspecified; R73.03 Prediabetes
CPT/HCPCS: 99283

== ENCOUNTER 2020-09-07 14:47 | Emergency (ER) | payer OTHER ==
--- OUTSIDE RECORDS SUMMARY | 2020-09-07 14:49 | XMS REPORT | Continuity of Care Document ---
:1945 Author Organization [facility] t Address [address] [place] [address] Care Team Providers Name Role Phone Unavailable Unavailable Unavailable Problems Condition Condition Condition Status Onset Resolution Last Treating Co mments Source Name Details Category Date Date Treatment Clinician Date Plantar Plantar Diagnosis Active [facility] - [facility] left [facility] Hyperlipid Hyperlipid Problem Active [facility] em[facility] emia [facility] Hypertensi Hypertensi Problem Active C HI [facility] on on [facility] Acute left Acute left Diagnosis Active [facility] ankle pain ankle pain Mikayla kes - Memoria l [facility]ics Diverticul Diverticul Problem Active C [facility] ar disease ar disease Mikayla kes - [facility] l [facility] Adjustment Adjustment Problem Active C [facility] disorder disorder [facility] - with with [facility]oria depressed depressed l mood mood [facility] Clinics Allergies, Adverse Reactions, Alerts This patient has no known allergies or adverse reactions. Medications Ordered Filled Start Stop Current Ordering Indication Dosage Frequency Signature Comments Components Source Medication Medication Date Date Medication? Clinician (SIG) Name Name Acetaminoph Acetaminoph Yes Kam (Schedule [facility] en-Codeine en-Codeine Gonzalez III Drug) [facility] - #3 #3 TK 2 TS PO [facility] Q 6 H PRN l P [facility] Simvastatin Simvastatin Yes Kam [address] [facility] [address] Gonzalez ORALLY [facility] - ONCE DAILY [facility] IN EVENING l [facility] Diclofenac Diclofenac Yes Kam [address] [facility] [address] Sodium Sodium Gonzalez with food [facility] - or milk [facility] l [facility] Lisinopril Lisinopril Yes Kam [address] [facility] [address] Gonzalez ORALLY [facility] ONCE DAILY [facility] Aspirin EC Aspirin EC Yes Kam TK [address] Low Dose Low Dose Gonzalez ONCE D [facility] - [facility] l Outpat[facility] ent [facility] Lisinopril Lisinopril Yes Kam TAKE [address] [facility] Gonzalez TABLET BY [facility] - MOUTH Memoria EVERY DAY [facility] ent [facility] Meloxicam Meloxicam Yes Kam not [facility] Gonzalez defined [facility] - [facility] Procedures This patient has no known procedures. Encounters Start End Encounter Admission Attending Care Care Encounter Source Date/Time Date/Time Type Type Clinicians Facility Department ID 2019-09-23 2019-09-23 Outpatient [facility] [id number] 08:30:00 08:30:00 t [facility] and [facility] - and [facility] Results This patient has no known results.
--- NOTE | 2020-09-07 19:08 | RAD REPORT ---
EXAM DESCRIPTION: RAD - Hand Right 3 View - 09/07/2020 6:49 pm CLINICAL HISTORY: Pain;Swelling COMPARISON: No comparisons FINDINGS: Mild soft tissue swelling is seen about the wrist. Soft tissue swelling is also seen along the dorsum of the hand. No fracture seen.
--- NOTE | 2020-09-07 19:11 | RAD REPORT ---
EXAM DESCRIPTION: RAD - Hand Left 3 View - 09/07/2020 6:50 pm CLINICAL HISTORY: Pain;Swelling COMPARISON: No comparisons FINDINGS: Soft tissue swelling is seen along the dorsum of the hand. No fracture or dislocation. Mod erate radiocarpal arthritic changes.
--- NOTE | 2020-09-07 19:30 | ER ---
Nurse's Notes [facility] Name: Theresa Perry Age: 75 yrs Sex: Male : 1945 Arrival Date: 09/07/2020 Time: 14:49 Bed 7 Private MD: Diagnosis: Pain in right wrist-arthritis;Pain in left wrist-arthritis Presentation: 09/07 14:52 Chief complaint: Patient's son or daughter states: daughter: both wrist swelling x 1 ca1 week. It could be from pushing himself up from sitting or I put wrist splint on them and they were mine and might have been too small for him. We could hardly take it out. Coronavirus screen: Client denies travel out of the [place] in the last 14 days. At this time, the client does not indicate any symptoms associated with coronavirus-19. Ebola Screen: Patient negative for fever greater than or equal to 101.5 degrees Fahrenheit, and additional compatible Ebola Virus Disease symptoms Patient denies exposure to infectious person. Patient denies travel to an Ebola-affected area in the 21 days before illness onset. No symptoms or risks identified at this time. Initial Sepsis Screen: Does the patient meet any 2 criteria? No. Patient's initial sepsis screen is negative. Does the patient have a suspected source of infection? No. Patient's initial sepsis screen is negative. Risk Assessment: Do you want to hurt yourself or someone else? Patient reports no desire to harm self or others. Onset of symptoms was September 07, 2020. 14:52 Method Of Arrival: Ambulatory ca1 14:52 Acuity: ALLAN 3 ca1 Historical: - Allergies: 14:57 No Known Allergies; ca1 - Home Meds: 14:57 None [Active]; ca1 - PMHx: 14:57 High Cholesterol; Hypertension; KIDNEY ISSUES AND BORDERLINE DIABETES; ca1 - PSHx: 14:57 Cholecystectomy; Tonsillectomy; ca1 - Immunization history:: Pneumococcal vaccine is not up to date, Flu vaccine is up to date. - Social history:: Smoking status: Patient denies any tobacco usage or history of. Screenin:49 Abuse screen: Denies threats or abuse. Nutritional screening: No deficits noted. tw2 Tuberculosis screening: No symptoms or risk factors identified. Fall Risk Secondary diagnosis (15 points) impaired mobility. Assessment: 17:50 General: Appears in no apparent distress. obese, well groomed, Behavior is calm, tw2 cooperative, appropriate for age. Pain: Complains of pain in left and right wrist. Neuro: Level of Consciousness is awake, alert, obeys commands, Oriented to person, place, time, situation. Cardiovascular: Patient's skin is warm and dry. Respiratory: Airway is patent Respiratory effort is even, unlabored, Respiratory pattern is regular, symmetrical. GI: No signs and/or symptoms were reported involving the gastrointestinal system. Abdomen is round non-distended. : No signs and/or symptoms were reported regarding the genitourinary system. EENT: No signs and/or symptoms were reported regarding the EENT system. Derm: Skin is intact, is healthy with good turgor, Skin is dry. Musculoskeletal: Range of motion: pt states "i can barely close my hands" Swelling present in left and right wrist Reports pain in left and right wrist. 19:26 Reassessment: Patient appears in no apparent distress at this time. Alex CASEY at sg bedside updating on results, awaiting new orders at this time. Vital Signs: 14:52 BP 186 / 104; Pulse 83; Resp 16 S; Temp 97(TE); Pulse Ox 98% on R/A; Weight 99.79 kg ca1 (R); Height 5 ft. 9 in. (175.26 cm); Pain 0/10; 17:58 BP 181 / 100; Pulse 88; Resp 17; Pulse Ox 98% on R/A; tw2 18:06 BP 161 / 96; Pulse 63; Resp 17; Pulse Ox 98% on R/A; tw2 14:52 Body Mass Index 32.49 (99.79 kg, 175.26 cm) ca1 ED Course: 14:49 Patient arrived in ED. rg4 14:56 Triage completed. ca1 14:57 Arm band placed on right wrist. ca1 17:48 Karly Guadarrama, RN is Primary Nurse. tw2 17:53 Patient has correct armband on for positive identification. Bed in low position. Call mh5 light in reach. Side rails up X 1. Pulse ox on. NIBP on. 17:59 Alex Fernandez NP is PHCP. pm1 17:59 Farooq Zhang MD is Attending Physician. pm1 18:45 Hand Left 3 View XRAY In Process Unspecified. EDMS 18:45 Hand Right 3 View XRAY In Process Unspecified. EDMS 18:54 Report given to TEENA Rader and TEENA Canales. tw2 19:07 Primary Nurse role handed off by Karly Guadarrama RN mw2 19:27 Parker Cuenca, RN is Primary Nurse. sg 19:50 No provider procedures requiring assistance completed. Patient did not have IV access sg during this emergency room visit. Velcro wrist splint applied to bilateral wrist. splint care education provided to pt and pt daughter, Maria De Jesus. Administered Medications: 19:32 Drug: [place] 5 mg-325 mg 1 tabs Route: PO; sg 19:58 Follow up: Response: No adverse reaction sg Outcome: 19:30 Discharge ordered by MD. pm1 19:50 Discharged to home ambulatory, with family. sg 19:50 Condition: good 19:50 Discharge instructions given to patient, family, rigging foreman, Instructed on discharge instructions, follow up and referral plans. safety practices, Demonstrated understanding of instructions, follow-up care, splint care. 19:58 Patient left the ED. dm5 Signatures: Dispatcher [employer] EDNJ Sarah Esqueda RN RN dm5 Parker Cuenca RN RN sg Alex Fernandez, MIKA COST ENGINEER pm1 Karly Guadarrama RN RN 2 Breanna Perry Maria Pradeep Peterson mw2 Ana Laura Paulson RN RN ca1 Corrections: (The following items were deleted from the chart) 14:58 14:52 Acuity: ALLAN 4 ca1 ca1
--- NOTE | 2020-09-07 19:30 | EDPHYS ---
Physician Documentation [facility] Name: Theresa Perry Age: 75 yrs Sex: Male : 1945 Arrival Date: 09/07/2020 Time: 14:49 Bed 7 Private MD: ED Physician Farooq Zhang HPI: 09/07 18:19 This 75 yrs old Male presents to ER via Ambulatory with complaints of Wrist pm1 Pain. 18:19 The patient or guardian reports pain, swelling. The complaints affect the left wrist pm1 diffusely, right wrist diffusely. Context: The problem was sustained at home, resulted from pushing himself up from his reclining chair. He first noticed the wrist pain and swelling when he did that about 1 week ago. His daughter applied her splints to his wrists but it did not make it any better, but worse. Patient reports history of arthritis. He noticed that the swelling and pain was worse in the morning and improved throughout the day. Onset: The symptoms/episode began/occurred 1 week(s) ago. Modifying factors: The symptoms are alleviated by holding still, the symptoms are aggravated by movement. Associated signs and symptoms: Pertinent negatives: cyanosis distally, decreased sensation distally, fever, numbness distally, tingling distally. Historical: - Allergies: 14:57 No Known Allergies; ca1 - Home Meds: 14:57 None [Active]; ca1 - PMHx: 14:57 High Cholesterol; Hypertension; KIDNEY ISSUES AND BORDERLINE DIABETES; ca1 - PSHx: 14:57 Cholecystectomy; Tonsillectomy; ca1 - Immunization history:: Pneumococcal vaccine is not up to date, Flu vaccine is up to date. - Social history:: Smoking status: Patient denies any tobacco usage or history of. ROS: 18:19 Constitutional: Negative for fever, chills, and weight loss, Cardiovascular: Negative pm1 for chest pain, palpitations, and edema, Respiratory: Negative for shortness of breath, cough, wheezing, and pleuritic chest pain, Back: Negative for injury and pain. 18:19 Skin: Negative for injury, rash, and discoloration, Neuro: Negative for headache, weakness, numbness, tingling, and seizure. 18:19 MS/extremity: Positive for pain, swelling, of the right wrist and left wrist, Negative for decreased range of motion, deformity. Exam: 18:19 Constitutional: This is a well developed, well nourished patient who is awake, alert, pm1 and in no acute distress. Head/Face: Normocephalic, atraumatic. 18:19 Skin: Warm, dry with normal turgor. Normal color with no rashes, no lesions, and no evidence of cellulitis. 18:19 Cardiovascular: Exam negative for acute changes, Rate: normal, Rhythm: regular, Pulses: no pulse deficits are appreciated. 18:19 Respiratory: Exam negative for acute changes, respiratory distress, shortness of breath. 18:19 Musculoskeletal/extremity: Extremities: grossly normal except: noted in the right wrist and right hand: mild swelling, There is no evidence of decreased ROM, deformity, tenderness, noted in the left hand: Trace swelling, no evidence of decreased ROM, deformity, tenderness, Circulation is intact in all extremities. 18:19 Neuro: Exam negative for acute changes, Orientation: is normal, Mentation: is normal, Motor: is normal, moves all fours. Vital Signs: 14:52 BP 186 / 104; Pulse 83; Resp 16 S; Temp 97(TE); Pulse Ox 98% on R/A; Weight 99.79 kg ca1 (R); Height 5 ft. 9 in. (175.26 cm); Pain 0/10; 17:58 BP 181 / 100; Pulse 88; Resp 17; Pulse Ox 98% on R/A; tw2 18:06 BP 161 / 96; Pulse 63; Resp 17; Pulse Ox 98% on R/A; tw2 14:52 Body Mass Index 32.49 (99.79 kg, 175.26 cm) ca1 MDM: 18:08 Patient medically screened. pm1 19:26 Data reviewed: vital signs. Data interpreted: Pulse oximetry: on room air is 98 %. pm1 Interpretation: normal. Counseling: I had a detailed discussion with the patient and/or guardian regarding: the historical points, exam findings, and any diagnostic results supporting the discharge/admit diagnosis, radiology results, the need for outpatient follow up, a orthopedic surgeon, to return to the emergency department if symptoms worsen or persist or if there are any questions or concerns that arise at home. 09/07 18:19 Order name: Hand Left 3 View XRAY; Complete Time: 19:22 pm1 09/07 18:19 Order name: Hand Right 3 View XRAY; Complete Time: 19:11 pm1 09/07 19:26 Order name: Wrist Splint: bilateral; Complete Time: 20:03 pm1 Administered Medications: 19:32 Drug: [place] 5 mg-325 mg 1 tabs Route: PO; 19:58 Follow up: Response: No adverse reaction sg Disposition: 09/08 07:33 Co-signature as Attending Physician, Farooq Zhang MD I agree with the assessment and kdr plan of care. Disposition: 09/07/20 19:30 Discharged to Home. Impression: Pain in right wrist - arthritis, Pain in left wrist - arthritis. - Condition is Stable. - Discharge Instructions: Arthritis, Wrist Pain, Wrist Splint. - Medication Reconciliation Form, Thank You Letter, Antibiotic Education, Prescription Opioid Use, Family Work Release form. - Follow up: Emergency Department; When: As needed; Reason: Worsening of condition. Follow up: Private Physician; When: 2 - 3 days; Reason: Recheck today's complaints, Continuance of care, Re-evaluation by your physician. - Problem is new. - Symptoms have improved. Signatures: Dispatcher [employer] EDMS Sarah Esqueda RN RN dm5 Parker Cuneca RN RN Farooq Zhang MD MD [facility] Alex Fernandez, MIKA CLIENT HR MANAGER pm1 Ana Laura Paulson RN RN ca1 Corrections: (The following items were deleted from the chart) 09/07 19:58 19:30 09/07/2020 19:30 Discharged to Home. Impression: Pain in right wrist - arthritis; dm5 Pain in left wrist - arthritis. Condition is Stable. Forms are Medication Reconciliation Form, Thank You Letter, Antibiotic Education, Prescription Opioid Use. Follow up: Emergency Department; When: As needed; Reason: Worsening of condition. Follow up: Private Physician; When: 2 - 3 days; Reason: Recheck today's complaints, Continuance of care, Re-evaluation by your physician. Problem is new. Symptoms have improved. pm1
[2020-09-07] MEDS ORDERED: HYDROCODONE/APAP 5/325 MG TAB ONE (19:44)
[2020-09-07 20:03] VITALS: TEMP 97; O2SAT 98
[2020-09-07 20:05] VITALS: BP 161/96
== END 2020-09-07 19:58 | disposition home or self-care (01) ==
LOC: ER 14:47
DX: M19.031 Primary osteoarthritis, right wrist (principal); M19.032 Primary osteoarthritis, left wrist; E78.00 Pure hypercholesterolemia, unspecified; I10 Essential (primary) hypertension; R73.03 Prediabetes
CPT/HCPCS: 99284

== ENCOUNTER → 2021-02-10 | Day surgery (SDC) | payer OTHER ==
[2021-02-05 09:26] LABS: Absolute Lymphocytes (CBC) 0.8 K/uL (0.7-4.9); Basophils % 1.2 % (0-1.3); Hematocrit 44.7 % (39.6-49.0); Lymphocytes % 15.4 % (15.3-44.8); RBC Red Blood Cell Count 5.47 M/uL (4.33-5.43)
[2021-02-05 09:35] LABS: Protime INR 1.02
[2021-02-05 09:40] LABS: Potassium 4.6 mmol/L (3.5-5.1)
--- NOTE | 2021-02-05 10:18 | RAD REPORT ---
EXAM DESCRIPTION: Isauro Cobos (2 Views)02/05/2021 9:15 am CLINICAL HISTORY: Preop for hand surgery COMPARISON: 2018 FINDINGS: The lungs appear clear of acute infiltrate. The heart is normal size IMPRESSION: No acute abnormalities displayed
[~2021-02-10] MED LIST: ACETAMINOPHEN 500 MG TAB ONE; CEFAZOLIN/SWI 2gm 2 GM/20 ML SYR ONE; CODEINE 30MG/APAP 300MG TAB ONE; FENTANYL CITR 100 MCG/2 ML ONE; LIDOCAINE 1% MPF 30 ML VIAL ONE; LIDOCAINE 2% MPF 5 ML VIAL ONE; MIDAZOLAM HCL 2 MG/2 ML INJ ONE; NS 0.9% VIAL 10 ML ONE; NS 0.9% VIAL 20 ML ONE; ROCURONIUM 50 MG/5 ML VIAL IV ONE; Ringers Lactate 1,000 ML IV ONE; propofoL 200 MG/20 ML VIAL IV ONE
[2021-02-10] MEDS: BUPIVACAINE 0.25% PF 10 ML VIAL ONE ×2 (08:32→08:42)
--- NOTE | 2021-02-10 09:17 | P.BOP ---
Preoperative diagnosis: left carpal tunnel syndrome Postoperative diagnosis: same Primary procedure: left open carpal tunnel release Nude Model: NONE,NONE Estimated blood loss: <5 cc Specimen: none Findings: see dictation Anesthesia: David Block Complications: None Implants: none Fluids & blood products: per anesthesia record; TT 32 mins @ 300 mmHg Transferred to: Recovery Room Condition: Good
[2021-02-10 09:24] VITALS: BP 126/77; TEMP 97.9; O2SAT 99
--- NOTE | 2021-02-10 21:42 | OP ---
Date of Procedure: 02/10/2021 Surgeon: Kam Gonzalez MD Preoperative Diagnosis: Left carpal tunnel syndrome. Postoperative Diagnosis: Left carpal tunnel syndrome. Procedure Performed: Left open carpal tunnel release. Anesthesia: [place] block. Complications: None. Implants: None. Tourniquet Time: 32 minutes at 300 mmHg. Estimated Blood Loss: Less than 5 cc. Indication For Procedure: Theresa is a 75-year-old male presenting with signs, symptoms, and EMG f indings consistent with left carpal tunnel syndrome that failed conservative treatment measures. He has continued pain and difficulties with activities of daily living. I discussed with the patient at length risks and benefits associated with operative and nonoperative treatment. He expressed unders tanding and elected to proceed with operative treatment. Description Of Procedure: After informed consent was obtained, the patient was identified in the pre operative holding area. The left upper extremity was marked. The patient was then brought back to [facility] operating room, transferred to the operative table in supine fashion, and placed under David block anesthesia. The left upper extremity was then prepped and draped in usual sterile fashion. A time-o ut was initiated. The correct patient and procedure performed and identified. The patient did recei ve his preoperative prophylactic antibiotics. Approximately 3 cm longitudinal incision was made just ulnar to the thenar crease. Dissection was then taken down at the palmar fascia. A [place] elevator was placed just deep to the palmar fascia protecting the nerve at all times. A 15 blade was then use d to release the palmar fascia as well as the transverse carpal ligament in a distal proximal fashion under direct visualization with the [place] elevator protecting the median nerve at all times. Any re maining fascial bands were then released using a blunt-tip Metzenbaum with the tips aimed superficial ly to protect the median nerve at all times. After complete release of the transverse carpal ligamen t and remaining fascial bands, the wound was then irrigated thoroughly with normal saline. The skin was approximated using a 5-0 Prolene. Sterile dressings were applied. Tourniquet was let down. The patient was awakened and transferred to PACU in stable condition. Postoperative Plan: The patient will be nonweightbearing on his left upper extremity. He will begin working on range of motion exercises. He will follow up in my clinic in 1 week for wound check. CV/MODL Voice ID: [id number] Report ID: [id number]
== END ==
LOC: OR 07:15
PROVIDERS: ATTEND Orthopaedic Surgery Sports Medicine
PROC: 01N50ZZ Release Median Nerve, Open Approach (ICD-10-PCS; principal; 2021-02-10 10:45)
DX: G56.02 Carpal tunnel syndrome, left upper limb (principal); M25.541 Pain in joints of right hand; M25.542 Pain in joints of left hand; G56.01 Carpal tunnel syndrome, right upper limb; Z20.822 Contact with and (suspected) exposure to COVID-19
CPT/HCPCS: 93005; 85025; 80048; 36415; 85610; 85730; 71046; 64721; U0002; J2704 ×2; J2250; J3010; J0690; J7120

== ENCOUNTER 2024-01-05 06:27 | Day surgery (SDC) | payer OTHER ==
[2024-01-03 10:49] LABS: Absolute Eosinophils 0.2 K/uL (0-0.5); Absolute Monocytes 0.6 K/uL (0.1-1.3); Absolute Neutrophil 5.3 K/uL (1.8-8.0); Basophils % 0.7 % (0-1.3); Eosinophils % 2.2 % (0-4.4); Hematocrit 42.5 % (39.6-49.0); Hemoglobin 13.8 g/dL (13.6-17.9); Lymphocytes % 13.8 % (15.3-44.8); MCH 26.7 pg (27.0-35.0); MCHC 32.4 g/dL (32.0-36.0); MCV 82.6 fL (80-100); MPV 9.2 fL (7.6-11.3); Monocytes % 8.1 % (3.3-12.3); Neutrophils % 75.2 % (41.7-73.7); Nucleated Red Blood Cells % 0.1 % (0-0); Platelets 160 thou/uL (152-406); RBC Red Blood Cell Count 5.15 M/uL (4.33-5.43); Red Cell Distribution Width 16.1 % (12.1-15.2)
[2024-01-03 10:58] LABS: PT Prothrombin Time 12.2 SECONDS (9.5-12.5); PTT, Activated Partial Thromb 35.8 SECONDS (24.3-36.9); Protime INR 1.11
--- NOTE | 2024-01-03 11:05 | RAD REPORT ---
EXAM DESCRIPTION: RAD - Chest Pa And Lat (2 Views) - 01/03/2024 10:42 am CLINICAL HISTORY: pre op for day surgery COMPARISON: Chest Pa And Lat (2 Views) dated 02/05/2021; Chest Single View dated 03/30/2018; CHEST SING LE VIEW dated 03/04/2015 FINDINGS: Lines: None. Lungs: No evidence of edema or pneumonia. Pleural: No significant pleural effusions or pneumothorax. Cardiac: The heart size is within normal limits. Mediastinum: Within normal limits. Bones: No acute fractures. Other: None IMPRESSION: No acute cardiopulmonary disease.
[2024-01-03 11:07] LABS: Anion Gap 7.4 mEq/L (5.0-15.0); Potassium 4.4 mEq/L (3.5-5.1)
--- NOTE | 2024-01-03 13:06 | EKG ---
Test Date: 2024-01-03 Test Time: 10:35:51 Fiberglass Laminator: AGAPITO MEASUREMENT RESULTS: Intervals: Rate: 71 [place]: 162 QRSD: 88 QT: 382 QTc: 415 [place]: P: 15 [place]: 162 QRS: 21 T: -11 INTERPRETIVE STATEMENTS: Normal sinus rhythm Normal ECG Compared to ECG 02/05/2021 07:58:49 Sinus bradycardia no longer present Electronically Signed On 01-03-24 13:05:35 CDT by Mg Lopez
[2024-01-05] MEDS ORDERED: propofoL 200 MG/20 ML VIAL IV ONE ×2 (07:04→07:10)
[2024-01-05] MEDS ORDERED: FENTANYL CITR 100 MCG/2 ML ONE ×2 (07:04→07:10)
[2024-01-05] MEDS ORDERED: LIDOCAINE 2% MPF 5 ML VIAL ONE ×2 (07:04→07:10)
[2024-01-05] MEDS ORDERED: ONDANSETRON 4 MG/2 ML VIAL ONE ×2 (07:04→07:10)
[2024-01-05] MEDS: Ringers Lactate 1,000 ML IV ONE (07:10)
[2024-01-05] MEDS: CEFAZOLIN SODIUM 2 GM/VIAL ONE (08:00)
[2024-01-05] MEDS: BUPIVACAINE 0.25% PF 10 ML VIAL ONE (08:27)
--- NOTE | 2024-01-05 08:50 | P.BOP ---
Preoperative diagnosis: right carpal tunnel syndrome Postoperative diagnosis: Same Primary procedure: Right open carpal tunnel release Spring Bender: NONE,NONE Estimated blood loss: 2 cc Specimen: None Findings: See dictation Anesthesia: General Complications: None Implants: None Fluids & blood products: Per anesthesia record; tourniquet time 14 minutes at 250 mmHg Transferred to: Recovery Room Condition: Good
--- NOTE | 2024-01-05 08:52 | P.OP ---
Preoperative diagnosis: Right carpal tunnel syndrome Postoperative diagnosis: Same Primary procedure: Right open carpal tunnel release Anesthesia: General Estimated blood loss: 2 cc Specimen: None Findings: See dictation Operative Technique: Reason for Surgery: Theresa had physical exam findings as well as EMG findings consistent with right carpal tunnel syndrome. I discussed with the patient at length risks and benefits associated with the procedure. He expressed understanding and elected proceed with operative treatment. Description of Procedure: After informed consent was obtained the patient was identified in the preoperative holding area. The right upper extremity was marked patient. Patient then brought back to the operating room transferred the operative table in supine fashion and placed under anesthesia. The right upper extremity was exsanguinated and the tourniquet was inflated to 250 mmHg. Approximately a 3 cm longitudinal incision was made just ulnar to the thenar crease. Dissection was then taken down to the palmar fascia which was identified. A [place] elevator was then placed just deep to the palmar fascia to protect the median nerve at all times. A 15 blade was then used to release the palmar fascia and transverse carpal ligament leaving the [place] elevator to protect the nerve at all times. Any remaining fascial bands were then released using a blunt tip Metzenbaum scissor. The tips were him superficially to protect the median nerve at all times. The wound was then irrigated thoroughly with normal saline. The skin was approximated using a 5-0 Prolene. Sterile dressings were applied and patient was awakened and transferred to PACU in stable condition. Postoperative plan: The patient will follow-up in 1 to 2 weeks for wound check and suture removal. He may begin to work on range of motion exercises at this time. Complications: None Implants: None Fluids & blood products: Per anesthesia record; tourniquet time 14 minutes at 250 mmHg Transferred to: Recovery Room Condition: Good
[2024-01-05 09:23] VITALS: O2SAT 100
[2024-01-05 09:51] VITALS: BP 123/74; TEMP 97.2
[2024-01-05] MEDS: TRAMADOL HCL 50 MG TAB ONE (09:55)
== END 2024-01-05 10:21 | disposition home or self-care (01) ==
LOC: OR 06:27
PROVIDERS: ATTEND Orthopaedic Surgery Sports Medicine
PROC: 01N50ZZ Release Median Nerve, Open Approach (ICD-10-PCS; principal; 2024-01-05 08:00)
DX: G56.01 Carpal tunnel syndrome, right upper limb (principal); M25.541 Pain in joints of right hand; I10 Essential (primary) hypertension; E78.5 Hyperlipidemia, unspecified; F43.21 Adjustment disorder with depressed mood
CPT/HCPCS: 93005; 85025; 80048; 36415; 85610; 85730; 71046; 64721; J2704; J2001; J3010; J2405; J7120